=== PATIENT | female | born 1940 | race Caucasian/White ===

== ENCOUNTER 2018-04-17 14:49 | Inpatient (IN) | payer MEDICARE ==
[~2018-04-17] VITALS: Ht 162.6 cm; Wt 64.5 kg
[~2018-04-17 14:49] MED LIST: ACET325T14 PO; CELE200C PO; LIDO700A20 TD; LISI-167 PO; METH4TAB PO
[2018-04-17] MEDS ORDERED: SODIUM CHLORIDE FLUSH 10ML SYR IVF ONE (15:30)
--- NOTE | 2018-04-17 15:45 | NUR ---
THIS IS A 77 YO FEMALE WHO PRESENTS TO THE ER C/O INCREASED WEAKNESS AND ALTERATION OF MENTAL STATUS X 2 DAYS. PER SON, PT'S BASELINE IS ONLY AO X SELF, HOWEVER, SHE HAS SEEMED MORE CONFUSED AND LESS CONVERSIVE OVER THE LAST FEW DAYS. PER SON SHE USUALLY WALKS TO THE PATIO AND BATHROOM W/O DIFFICULTY BUT HAS BEEN HAVING TROUBLE MOVING. PT REPORTS SLIGHTLY DECREASED SENSATION BILATERALLY ON FACE. PT HAS FACIAL SYMMETRY, IS ABLE TO MOVE ALL EXTREMITIES AND FOLLOWS COMMANDS. PT DID NOT ANSWER QUESTIONS OF AGE AND DATE APPROPRIATELY, BUT PER SON THIS IS HER BASELINE. PT DOES HAVE SLIGHTLY SLURRED SPEECH. 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 PT ON CONT BP, CARDIAC AND O2 MONITORS. CALL LIGHT WITHIN REACH.
[2018-04-17 15:55] LABS: BASOPHILS # (AUTO) 0.04 x10^3/uL (0-0.1); BASOPHILS % (AUTO) 0 % (0-1); EOSINOPHILS # (AUTO) 0.02 x10^3/uL (0-0.4); EOSINOPHILS % (AUTO) 0 % (1-7); LYMPHOCYTES # (AUTO) 1.14 x10^3/uL (1-3.4); LYMPHOCYTES % (AUTO) 8 % (22-44); MD NO; MEAN CORPUSCULAR HEMOGLOBIN 30.5 pg (27.0-34.8); MEAN CORPUSCULAR VOLUME 89.6 fL (80-100); MEAN PLATELET VOLUME 9.9 fL (7.4-10.4); MONOCYTES % (AUTO) 7 % (2-9); NEUTROPHILS # (AUTO) 11.56 x10^3/uL (1.8-6.8); NEUTROPHILS % (AUTO) 85 % (42-75); PLATELET COUNT 256 x10^3/uL (130-400); RED BLOOD COUNT 5.31 x10^6/uL (3.82-5.3); RED CELL DISTRIBUTION WIDTH 13.9 % (9.6-15.2)
[2018-04-17 16:05] LABS: ALANINE AMINOTRANSFERASE 19 U/L (12-78); ALBUMIN 4.1 g/dL (3.4-5.0); ANION GAP 6 mmol/L (5-15); CHLORIDE 105 mmol/L (98-107); CREATININE 1.16 mg/dL (0.55-1.02)
[2018-04-17 16:06] LABS: INTERNATIONAL NORMALIZED RATIO 0.97 (0.93-1.1); PROTHROMBIN TIME 10.2 Seconds (9.6-11.5)
[2018-04-17 16:10] LABS: ALKALINE PHOSPHATASE 102 U/L (45-117); BILIRUBIN,TOTAL 1.1 mg/dL (0.2-1.0); TOTAL PROTEIN 7.7 g/dL (6.4-8.2); TROPONIN I < 0.015 ng/mL (0.000-0.045)
--- NOTE | 2018-04-17 16:10 | NUR ---
PT CURRENTLY RESTING ON GURNEY. NAD NOTED. SKIN PWD. RESP EVEN AND EQAUL. NO CHANGE IN NEURO PRESENTATION AT THIS TIME. PT AO X SELF, WHICH IS PT'S BASELINE PER SON. PT DENIES ANY PAIN/NEEDS AT THIS TIME. SON AT BEDSIDE. CALL LIGHT WITHIN REACH. WILL CONT TO MONITOR PT.
[2018-04-17 17:01] LABS: MICROSCOPIC INDICATED
[2018-04-17] MEDS ORDERED: ASPIRIN 81 MG TABLET CHEW ONE (17:20)
--- NOTE | 2018-04-17 17:25 | NUR ---
PT CURRENTLY SITTING UP ON GURNEY. PT DID WELL TAKING BABY ASA AND WATER. NO COUGHING, WETNESS OR THROAT CLEARING NOTED AFTER TAKING PILLS. ADMITTING MD PLASENCIA AT BEDSIDE AT THIS TIME. PT AO X SELF AND KNOWS SHE IS AT [facility]. PER SON, HER BASELINE IS AO TO SELF. PT FOLLOWS COMMANDS. [place] W/O DIFFICULTY. FACE SYMMETRICAL. SPEECH REMAINS SLIGHTLY SLURRED. PT ON CONT BP, CARDIAC AND O2 MONITORS.
[2018-04-17] MEDS ORDERED: ASPIRIN 81 MG TABLET CHEW PO ONE (17:30)
[2018-04-17 17:39] LABS: CULTURE INDICATED? NO
[2018-04-17] MEDS ORDERED: ONDANSETRON 2MG/ML, 2ML IVPush PRN (18:00)
[2018-04-17] MEDS ORDERED: ACETAMINOPHEN 325 MG TABLET PO PRN (18:00)
[2018-04-17] MEDS ORDERED: POLYETHYLENE GLYCOL 17 GM PACKET PO PRN (18:00)
[2018-04-17] MEDS ORDERED: morphine SULFATE 10 MG/ML, 1ML IVPush PRN (18:00)
--- NOTE | 2018-04-17 18:30 | NUR ---
PT CURRENTLY RESTING ON GURNEY. NAD NOTED. SKIN PWD. RESP EVEN AND EQAUL. PT AO X SELF, PER BASELINE. SON AT BEDSIDE. NO CHANGE IN NEURO STATUS AT THIS TIME. PT ON CONT PB, CARDIAC AND O2 MONITORS. CALL LIGHT WITHIN REACH. WILL CONT TO MONITOR PT.
--- NOTE | 2018-04-17 18:50 | NUR ---
REPORT TO GOMEZ CALVILLO ON MED/TELE. PT TO GO TO MRI AND THEN MED/TELE.
[2018-04-17 19:45] VITALS: BP 151/99
[2018-04-17 21:45] VITALS: BP 130/90
[2018-04-17] MEDS: SODIUM CHLORIDE 0.9% 1,000 ML IV SCH (22:00)
[2018-04-17] MEDS: ATORVASTATIN 40 MG TABLET PO SCH (22:07)
[2018-04-17 23:45] VITALS: BP 152/92
[2018-04-18] VITALS (8 sets, daily range): BP systolic 139–173; BP diastolic 92–108
[2018-04-18 05:21] LABS: CHOL/HDL RATIO 4.7; LDL/HDL RATIO 3.2 (0.5-3.0)
[2018-04-18] MEDS ORDERED: ASPIRIN 81 MG TABLET EC PO SCH (06:00)
[2018-04-18] MEDS: SODIUM CHLORIDE 0.9% 1,000 ML IV SCH ×2 (08:00→16:41)
[2018-04-18] MEDS: ASPIRIN 81 MG TABLET CHEW PO/NG SCH (09:01)
[2018-04-18 15:44] LABS: ANION GAP 10 mmol/L (5-15); CALCIUM 8.6 mg/dL (8.5-10.1); CHLORIDE 108 mmol/L (98-107); CREATININE 0.84 mg/dL (0.55-1.02)
[2018-04-18] MEDS: ENOXAPARIN 40 MG/0.4 ML SQ SCH (16:41)
[2018-04-18] MEDS ORDERED: ENOXAPARIN 30 MG/0.3 ML SQ SCH (18:00)
[2018-04-18] MEDS: ATORVASTATIN 40 MG TABLET PO SCH (20:12)
[2018-04-19] VITALS (10 sets, daily range): BP systolic 124–180; BP diastolic 71–115
[2018-04-19] MEDS ORDERED: ATOR40TA78 PO (07:49)
[2018-04-19] MEDS ORDERED: ASPI-515 PO/NG (07:49)
[2018-04-19] MEDS ORDERED: CYAN10002 IM (07:50)
[2018-04-19] MEDS ORDERED: CYAN2500 PO (07:50)
[2018-04-19] MEDS ORDERED: POLY17PO5 PO (07:50)
[2018-04-19] MEDS ORDERED: ERGO500017 PO (07:50)
[2018-04-19] MEDS: CYANOCOBALAMIN 1,000 MCG/ML, 1ML IM SCH (08:50)
[2018-04-19] MEDS: ASPIRIN 81 MG TABLET CHEW PO/NG SCH (08:50)
[2018-04-19] MEDS: SODIUM CHLORIDE 0.9% 1,000 ML IV SCH ×2 (08:53→19:52)
[2018-04-19] MEDS ORDERED: ERGOCALCIFEROL 50,000 UNIT CAPSULE PO SCH (16:30)
[2018-04-19] MEDS: ENOXAPARIN 40 MG/0.4 ML SQ SCH (17:04)
[2018-04-19] MEDS: ATORVASTATIN 40 MG TABLET PO SCH (19:52)
[2018-04-20 00:41] VITALS: BP 132/72
[2018-04-20] MEDS: SODIUM CHLORIDE 0.9% 1,000 ML IV SCH ×2 (06:06→15:00)
[2018-04-20 06:09] VITALS: BP 147/99
[2018-04-20] MEDS: ASPIRIN 81 MG TABLET CHEW PO/NG SCH (10:54)
[2018-04-20] MEDS: CYANOCOBALAMIN 1,000 MCG/ML, 1ML IM SCH (10:54)
[2018-04-20 13:37] VITALS: BP 163/92
== END 2018-04-20 16:59 | DRG 70 ==
LOC: ED 15:22 → SUATTDRO 17:11 → EDIP 17:41 → 4EST 19:35
PROVIDERS: ADMIT Internal Medicine; ATTEND Internal Medicine
PROC: 0T9B70Z Drainage of Bladder with Drainage Device, Via Natural or Artificial Opening (ICD-10-PCS; principal; 2018-04-17)
DX: G93.41 Metabolic encephalopathy (principal); N17.0 Acute kidney failure with tubular necrosis; G45.9 Transient cerebral ischemic attack, unspecified; R65.10 Systemic inflammatory response syndrome (SIRS) of non-infectious origin without acute organ dysfunction; E55.9 Vitamin D deficiency, unspecified; F01.50 Vascular dementia, unspecified severity, without behavioral disturbance, psychotic disturbance, mood disturbance, and anxiety; G30.9 Alzheimer's disease, unspecified; I35.1 Nonrheumatic aortic (valve) insufficiency; J32.0 Chronic maxillary sinusitis; G89.29 Other chronic pain; M51.36 Other intervertebral disc degeneration, lumbar region; Z66 Do not resuscitate; F17.210 Nicotine dependence, cigarettes, uncomplicated; F02.80 Dementia in other diseases classified elsewhere, unspecified severity, without behavioral disturbance, psychotic disturbance, mood disturbance, and anxiety; R63.0 Anorexia; M41.9 Scoliosis, unspecified; Z68.24 Body mass index [BMI] 24.0-24.9, adult; Z79.899 Other long term (current) drug therapy
CPT/HCPCS: 36415; 70450; 70551; 71045; 80048; 80053; 80061; 81001; 82306; 82607; 84484; 85025; 85610; 85730; 93005; 93306; 93880; 95819; 99285; G0378; J1650; J3420; J7030

== ENCOUNTER 2018-07-15 22:22 | Emergency (ER) | payer MEDICARE ==
[~2018-07-15] VITALS: Ht 165.1 cm; Wt 62.0 kg
[~2018-07-15 22:22] MED LIST changes: +ASPI-515 PO/NG; +ATOR40TA78 PO; +CYAN10002 IM; +CYAN2500 PO; +ERGO500017 PO; +POLY17PO5 PO
--- NOTE | 2018-07-15 22:35 | NUR ---
PT IN HOSPITAL GOWN. PT FOLLOWING COMMANDS A THIS TIME. PT ON VITALS MONITORS. BILAT BEDRAILS UP.
--- NOTE | 2018-07-15 22:50 | NUR ---
ABLE TO STRAIGHT CATH PT FOR URINE. URINE WALKED TO LAB.
[2018-07-15] MEDS ORDERED: CALC1CAP8 PO (22:52)
[2018-07-15] MEDS ORDERED: ERGO2000 PO (22:52)
[2018-07-15] MEDS ORDERED: TRAZ-137 PO (22:52)
[2018-07-15 22:53] LABS: BASOPHILS # (AUTO) 0.04 x10^3/uL (0-0.1); BASOPHILS % (AUTO) 1 % (0-1); EOSINOPHILS # (AUTO) 0.11 x10^3/uL (0-0.4); EOSINOPHILS % (AUTO) 1 % (1-7); LYMPHOCYTES # (AUTO) 1.53 x10^3/uL (1-3.4); LYMPHOCYTES % (AUTO) 16 % (22-44); MD NO; MEAN CORPUSCULAR HEMOGLOBIN 30.2 pg (27.0-34.8); MEAN CORPUSCULAR HGB CONC 32.7 g/dL (32.4-35.8); MEAN CORPUSCULAR VOLUME 92.4 fL (80-100); MEAN PLATELET VOLUME 9.5 fL (7.4-10.4); MONOCYTES # (AUTO) 0.54 x10^3/uL (0.2-0.8); MONOCYTES % (AUTO) 6 % (2-9); NEUTROPHILS # (AUTO) 7.49 x10^3/uL (1.8-6.8); NEUTROPHILS % (AUTO) 77 % (42-75); PLATELET COUNT 225 x10^3/uL (130-400); RED BLOOD COUNT 4.93 x10^6/uL (3.82-5.3); RED CELL DISTRIBUTION WIDTH 13.7 % (9.6-15.2)
[2018-07-15 22:56] LABS: MICROSCOPIC NOT IND
[2018-07-15 22:59] LABS: CULTURE INDICATED? NO
[2018-07-15 23:05] LABS: ALANINE AMINOTRANSFERASE 36 U/L (12-78); ALBUMIN 3.9 g/dL (3.4-5.0); ANION GAP 6 mmol/L (5-15); CALCIUM 8.9 mg/dL (8.5-10.1); CHLORIDE 105 mmol/L (98-107)
[2018-07-15 23:08] LABS: ALKALINE PHOSPHATASE 108 U/L (45-117); CREATININE 0.96 mg/dL (0.55-1.02); TOTAL PROTEIN 7.1 g/dL (6.4-8.2)
--- NOTE | 2018-07-15 23:17 | NUR ---
ALL RESULTS BACK AT THIS TIME. PT UP FOR RECHECK.
[2018-07-15 23:33] VITALS: BP 133/100
== END 2018-07-16 01:23 | disposition home or self-care (01) ==
LOC: ED 23:01
DX: I10 Essential (primary) hypertension (principal); Z86.73 Personal history of transient ischemic attack (TIA), and cerebral infarction without residual deficits; G30.9 Alzheimer's disease, unspecified; F02.80 Dementia in other diseases classified elsewhere, unspecified severity, without behavioral disturbance, psychotic disturbance, mood disturbance, and anxiety; F17.200 Nicotine dependence, unspecified, uncomplicated
CPT/HCPCS: 36415; 70450; 71045; 80053; 81003; 85025; 99284

== ENCOUNTER 2019-02-21 14:37 | Emergency (ER) | payer MEDICARE ==
[~2019-02-21] VITALS: Ht 165.1 cm; Wt 70.0 kg
[~2019-02-21 14:37] MED LIST changes: +CALC1CAP8 PO; +ERGO2000 PO; +TRAZ-137 PO
[2019-02-21 14:56] VITALS: BP 132/106
[2019-02-21 15:11] LABS: BASOPHILS # (AUTO) 0.11 x10^3/uL (0-0.1); BASOPHILS % (AUTO) 1 % (0-1); EOSINOPHILS # (AUTO) 0.26 x10^3/uL (0-0.4); EOSINOPHILS % (AUTO) 3 % (1-7); LYMPHOCYTES # (AUTO) 1.97 x10^3/uL (1-3.4); LYMPHOCYTES % (AUTO) 24 % (22-44); MD NO; MEAN CORPUSCULAR HEMOGLOBIN 30.6 pg (27.0-34.8); MEAN CORPUSCULAR HGB CONC 33.1 g/dL (32.4-35.8); MEAN CORPUSCULAR VOLUME 92.5 fL (80-100); MEAN PLATELET VOLUME 9.3 fL (7.4-10.4); MONOCYTES # (AUTO) 0.67 x10^3/uL (0.2-0.8); MONOCYTES % (AUTO) 8 % (2-9); NEUTROPHILS # (AUTO) 5.29 x10^3/uL (1.8-6.8); NEUTROPHILS % (AUTO) 64 % (42-75); PLATELET COUNT 263 x10^3/uL (130-400); RED CELL DISTRIBUTION WIDTH 13.4 % (9.6-15.2)
[2019-02-21] MEDS ORDERED: LISI-167 PO (15:12)
--- NOTE | 2019-02-21 15:12 | NUR ---
PT HERE FROM [facility] WITH FAMILY FOR HTN, PER SON [facility] REPORTED 160/58. PT BASELINE END STAGE DEMENTIA. PT DRESSED IN GOWN AND ATTACHED TO MONITOR. NAD. ROOM AIR, CALL LIGHT WITHIN REACH. SIDERAIL X [address] MED REC COMPLETED. EKG COMPLETED AND FAMILY AT BEDSIDE.
[2019-02-21 15:19] LABS: ALANINE AMINOTRANSFERASE 31 U/L (12-78); ALBUMIN 3.5 g/dL (3.4-5.0); ANION GAP 4 mmol/L (5-15); CALCIUM 8.8 mg/dL (8.5-10.1); CHLORIDE 109 mmol/L (98-107)
[2019-02-21 15:24] LABS: ALKALINE PHOSPHATASE 98 U/L (45-117); BILIRUBIN,TOTAL 0.3 mg/dL (0.2-1.0); CREATININE 1.01 mg/dL (0.55-1.02); TOTAL PROTEIN 6.8 g/dL (6.4-8.2); TROPONIN I < 0.015 ng/mL (0.000-0.045)
--- NOTE | 2019-02-21 15:55 | NUR ---
Patient/Caregiver given discharge instructions and they have confirmed that they understand the instructions. Patient ambulatory with steady gait.
--- NOTE | 2019-02-21 16:10 | NUR ---
VERIFIED WITH PROVIDER THAT IT IS OK TO D/C PT WITH A SBP 159, OK PER MD.
== END 2019-02-21 16:11 | disposition home or self-care (01) ==
LOC: ED 15:56
DX: G30.1 Alzheimer's disease with late onset (principal); F02.80 Dementia in other diseases classified elsewhere, unspecified severity, without behavioral disturbance, psychotic disturbance, mood disturbance, and anxiety; I10 Essential (primary) hypertension; Z86.73 Personal history of transient ischemic attack (TIA), and cerebral infarction without residual deficits; F17.200 Nicotine dependence, unspecified, uncomplicated
CPT/HCPCS: 36415; 71045; 80053; 84443; 84484; 85025; 93005; 99284